=== PATIENT | male | born 1945 | race Two or more races ===

== ENCOUNTER 2020-06-11 13:39 | Emergency (ER) | payer SELFPAY ==
[~2020-06-11] VITALS: Ht 172.7 cm; Wt 52.2 kg
[2020-06-11 14:34] VITALS: BP 113/43
== END 2020-06-11 16:36 | disposition home or self-care (01) ==
LOC: ER 13:39
DX: Z48.00 Encounter for change or removal of nonsurgical wound dressing (principal)

== ENCOUNTER 2020-06-13 13:57 | Emergency (ER) | payer SELFPAY ==
[~2020-06-13] VITALS: Ht 172.7 cm; Wt 50.8 kg
[2020-06-13 14:11] VITALS: BP 126/67
[2020-06-13] MEDS ORDERED: EPINEPHrine HCL 1 MG/1 ML AMP SC ONE (15:30)
[2020-06-13] MEDS ORDERED: methylPREDNISolone SOD SUCC 125 MG/2 ML VL IM ONE (15:30)
== END 2020-06-13 16:04 | disposition home or self-care (01) ==
LOC: ER 13:57
DX: T50.905A Adverse effect of unspecified drugs, medicaments and biological substances, initial encounter (principal); F17.210 Nicotine dependence, cigarettes, uncomplicated; Y92.89 Other specified places as the place of occurrence of the external cause
CPT/HCPCS: 96372; 99284; J0171; J2930